=== PATIENT | male | born 1990 | race Caucasian/White ===

== ENCOUNTER 2022-01-17 09:28 | Emergency (ER) | payer SELFPAY ==
[2022-01-17 09:53] VITALS: BP 133/74; PULSE 79; RESP 15; O2SAT 99; BMI 31.2
--- NOTE | 2022-01-17 09:57 | XR_ITS ---
WS: [id number] Exam: XR hand RT min 3V* [id number] Date/Time of Exam: 01/17/2022 10:21 AM Reason For Exam: punched side mirror of truck No acute fracture or dislocation. Old fracture deformity of the fifth metacarpal. No soft tissue fore ign bodies. XR/XR hand RT min 3V* [id number] IMPRESSION: 1. No acute fracture or other significant finding.
--- NOTE | 2022-01-17 10:33 | W.ED.EXTPRO ---
HPI - Extremity Problem General: Chief complaint: Extremity Injury, Upper Stated complaint: Right hand injury Time Seen by Provider: 01/17/22 09:58 History of Present Illness: Patient is a 31-year-old male comes to the ED with right hand injury. Injury occurred last night. Patient says he was angry and punched his truck side mirror. This morning he woke up and had severe pain in his right hand along with some bruising and swelling. He took ibuprofen this morning to help with pain and he says his current pain is a 4 out of 10. He is limited in range of motion in wrist due to pain and has limited range of motion and strength in hand due to pain. Associated symptoms: Deny chest pain, fever(s) or rash Review of Systems Const: Denies: fever(s), chills or fatigue Eyes: Denies: change in vision or eye discomfort ENMT: Denies: throat pain, odynophagia, nasal discharge or nasal congestion Card: Denies: chest pain, palpitations, edema, swelling of feet/ankles, dyspnea on exertion or orthopnea Resp: Denies: dyspnea, productive cough or non-productive cough GI: Denies: abdominal pain, nausea, vomiting, diarrhea, constipation or hematochezia : Denies: flank pain, difficulty urinating, dysuria or hematuria Musc: Reports: extremity pain (Right hand) and extremity swelling (Right hand); Denies: neck pain or back pain Skin/Breast: Denies: rash or new lesions Neuro: Denies: headache(s), numbness in extremities or weakness in extremities [facility] ED PFSH: Medical History (Updated 01/18/22 @ 07:23 by JANENE Prakash) No pertinent family history Surgical History (Updated 01/18/22 @ 07:23 by JANENE Prakash) No pertinent past surgical history Physical Exam Const: COMMON NORMALS: no acute distress, patient oriented x3 and alert GENERAL APPEARANCE: cooperative and comfortable HENMT: COMMON NORMALS: normocephalic HEAD & SCALP: normocephalic MOUTH: Normal oral and palatal mucosa present THROAT: posterior oropharynx normal and uvula midline Neck/C-Spine: COMMON NORMALS: supple GENERAL: Yes normal visual inspection Resp: COMMON NORMALS: normal respiratory effort, No retractions, No use of accessory muscles and clear to auscultation bilaterally AUSCULTATION: clear to auscultation bilaterally Cardio: COMMON NORMALS: regular rate, regular rhythm, S1 normal heart sound present, S2 normal heart sound present, No gallops present (Cardio), No clicks present (Cardio), No murmurs present (Cardio) and Peripheral pulses 2+ throughout RATE: regular rate RHYTHM: regular rhythm HEART SOUNDS: S1 normal heart sound present and S2 normal heart sound present PERIPHERAL PULSES: Peripheral pulses 2+ throughout GI: COMMON NORMALS: Normal to inspection, nondistended, normoactive bowel sounds present, Soft to palpation, non-tender and no masses PALPATION: Yes Soft to palpation : COMMON NORMALS: Yes no CVA tenderness BLADDER/KIDNEY EXAM: Yes no CVA tenderness Back/Pelvis: COMMON NORMALS: no CVA tenderness Extremity: NARRATIVE EXTREMITY EXAM: Right hand?significant swelling and ecchymosis noted throughout dorsal aspect of hand. Tenderness over fourth and fifth metacarpals. Limited range of motion in wrist due to pain. Limited range of motion in fingers and limited siebel crm developer strength due to pain. Neurovascular intact distally. Neuro: COMMON NORMALS: patient oriented x3 SENSORIUM/ORIENTATION: Yes alert GAIT: Yes Normal gait present Skin: GENERAL SKIN EXAM: dry skin Course Vital Signs: Vital signs: Vital Signs Pulse Rate 79 01/17/22 09:53 Respiratory Rate 15 01/17/22 09:53 Blood Pressure 133/74 01/17/22 09:53 Pulse Oximetry 99 01/17/22 09:53 Oxygen Delivery Me thod 01/17/22 09:53 MDM - Extremity (Nontraumatic) Medical Decision Making Patient is a 31-year-old male who comes to the ED with right hand injury. Patient punched his truck mirror last night and he woke up with ecchymosis, pain and swelling in his right hand. Vitals are stable. Right hand?significant swelling and ecchymosis noted throughout dorsal aspect of hand. Tenderness over fourth and fifth metacarpals. Limited range of motion in wrist due to pain. Limited range of motion in fingers and limited siebel crm developer strength due to pain. Neurovascular intact distally. X-ray of right hand showed no acute fractures. Given patient's clinical appearance I treated like a fracture in his hand and put him in an ulnar gutter splint. I placed a referral with case management for patient to be referred to Ortho for follow-up on right hand injury. Patient understood and agreed with plan. Lab Data Radiology Impressions Hand X-Ray 01/17/22 09:57 IMPRESSION: 1. No acute fracture or other significant finding. Discharge Plan Discharge Patient Disposition: Home Clinical Impression: Injury of right hand Qualifiers: Encounter type: initial encounter Qualified Code(s): S69.91XA - Unspecified injury of right wrist, hand and finger(s), initial encounter Condition: Stable Discharge Orders: Discharge ED (Routine); Ordered 01/17/22 Ordered By: Fitz Briones Discharge Diet: Regular Discharge Activity: Limit activity as instructed Patient Instructions: Hand Fracture (ED) Activity Restrictions/Additional Instructions: Follow-up with medical provider as directed. Case management should be contacting you in the next several days to set up an appoint with Ortho for follow-up on hand injury. Rotate taking ibuprofen and Tylenol per bottle instruction to help with pain. Keep splint on and dry and limit activity with right hand until cleared by Ortho. Return to the ER or your medical provider if condition worsens. Please read and understand discharge instructions. Thank you for choosing [facility] for your healthcare needs today. Please realize this is an emergency room and that we are providing you with a medical screening exam and this may not be complete and all inclusive of all the testing and or work up that you may need to determine your ailment or severity of your illness. It is very important that you follow up as instructed or that you return to the Emergency Department should you have concerns or if your condition changes or worsens in any way. Coding Level of Care Code ED [employer] for [facility] Exam Comprehensive
--- NOTE | 2022-01-17 14:53 | DCPLANNER ---
Addendum entered by Yaima Clark 02/17/22 06:03: sales communications manager received the following message from the ortho clinic regarding follow up appointment: Patient states he thinks he just bruised his hand and doesnt believe he needs this referral at this time, I told him to call back if it got worse or he changed his mind and we would get him in with Dr. Andres Original Note: sales communications manager had message to schedule a follow up appointment for patient with ortho. sales communications manager sent patients information to the front office staff at ortho. Patients information will be printed and reviewed. Clinic will call patient with appointment information.
== END 2022-01-17 11:24 | disposition home or self-care (01) ==
PROVIDERS: Emergency Provider Physician Assistant
DX: S69.91XA Unspecified injury of right wrist, hand and finger(s), initial encounter (principal); W22.09XA Striking against other stationary object, initial encounter
CPT/HCPCS: 73130; 99283